=== PATIENT | male | born 1965 | race Caucasian/White ===

== ENCOUNTER 2020-08-22 13:58 | Emergency (ER) | payer OTHER ==
[2020-08-22 15:24] LABS: Absolute Lymphocytes (CBC) 2.2 K/uL (0.7-4.9); Hematocrit 46.3 % (39.6-49.0); Lymphocytes % 27.8 % (15.3-44.8); MPV 10.8 fL (7.6-11.3); RBC Red Blood Cell Count 5.23 M/uL (4.33-5.43)
[2020-08-22] MEDS ORDERED: NA CHLORIDE 0.9% 1,000 ML ONE ×2 (15:26→16:42)
[2020-08-22 15:27] LABS: Protime INR 0.88
--- NOTE | 2020-08-22 15:37 | RAD REPORT ---
EXAM DESCRIPTION: RAD - Chest Single View - 08/22/2020 3:20 pm CLINICAL HISTORY: near syncope Chest pain. COMPARISON: No comparisons FINDINGS: Portable technique limits examination quality. The lungs are grossly clear. The heart is normal in size. No displaced fractures. IMPRESSION: No acute intrathoracic process suspected.
[2020-08-22 15:52] LABS: ALT/SGPT 64 U/L (12-78); AST/SGOT 40 U/L (15-37); Albumin 3.3 g/dL (3.4-5.0); Alkaline Phosphatase 86 U/L (45-117); BUN Blood Urea Nitrogen 14 mg/dL (7-18); Bicarbonate 23 mmol/L (21-32); Bilirubin Direct < 0.1 mg/dL (0-0.2); Bilirubin Total 0.5 mg/dL (0.2-1.0); Glucose Level 373 mg/dL (74-106); NT PRO-BNP 107 pg/mL (<125); Potassium 4.4 mmol/L (3.5-5.1); Protein, Total 6.3 g/dL (6.4-8.2); Sodium Level 134 mmol/L (136-145); Troponin (Emerg Dept Use Only) < 0.02 ng/mL (0.0-0.045)
[2020-08-22 15:53] LABS: Magnesium 1.8 mg/dL (1.8-2.4)
[2020-08-22 16:17] LABS: Urine Blood NEGATIVE (NEG); Urine Glucose 3+ (NEG); Urine Protein TRACE (NEG); Urine Specific Gravity 1.015 (1.005-1.030); Urine pH 5.5 (5.0-7.0)
[2020-08-22] MEDS ORDERED: INSULIN -REGULAR HUMAN 50 UNIT/0.5 ML ML ONE (16:42)
--- NOTE | 2020-08-22 17:58 | EDPHYS ---
Physician Documentation [facility] Name: Jamie Steele Age: 54 yrs Sex: Male : 1965 Arrival Date: 08/22/2020 Time: 14:03 Bed 15 Private MD: ED Physician Robbin Sotelo HPI: 08/22 15:16 This 54 yrs old Male presents to ER via Ambulatory with complaints of High pm1 Blood Sugar. 15:16 The patient or guardian reports hyperglycemia, that was potentially precipitated by pm1 eating, lots of sugar. Was eating ice cream, cookies, and soda for 4 days in a row. 15:16 Onset: The symptoms/episode began/occurred 4 day(s) ago. Associated signs and symptoms: pm1 Pertinent positives: polyuria, near syncope, shortness of breath, Pertinent negatives: diarrhea, nausea, vomiting, chest pain. Current symptoms: In the emergency department the patient's symptoms are unchanged from the initial presentation. The patient has not experienced similar symptoms in the past. The patient has not recently seen a physician. Patient reports normally well controlled blood sugar with metformin but for four days he was celebrating his 's new job, two birthdays, and a baby shower. Eating ice cream, cookies, soda daily for four days and noticed his blood sugar readings getting high. Historical: - Allergies: 14:33 No Known Allergies; ll1 - PMHx: 14:33 Diabetes - NIDDM; Hypertension; ll1 - PSHx: 14:33 palate and uvula removed; ll1 - Immunization history:: Flu vaccine is not up to date. - Social history:: Smoking status: Patient reports the use of cigarette tobacco products, denies chronic smoking, but will smoke occasionally. ROS: 15:16 Constitutional: Negative for fever, chills, and weight loss, Neck: Negative for injury, pm1 pain, and swelling, Cardiovascular: Negative for chest pain, palpitations, and edema. 15:16 Abdomen/GI: Negative for abdominal pain, nausea, vomiting, diarrhea, and constipation, Back: Negative for injury and pain, : Negative for injury, bleeding, discharge, and swelling, MS/Extremity: Negative for injury and deformity, Skin: Negative for injury, rash, and discoloration. 15:16 Respiratory: Positive for shortness of breath, Negative for cough, wheezing. 15:16 Neuro: Positive for near syncope, Negative for headache, numbness, tingling, weakness. 15:16 Endocrine: Positive for polyuria. Exam: 15:16 Constitutional: This is a well developed, well nourished patient who is awake, alert, pm1 and in no acute distress. Head/Face: Normocephalic, atraumatic. 15:16 Back: No spinal tenderness. No costovertebral tenderness. Full range of motion. Skin: Warm, dry with normal turgor. Normal color with no rashes, no lesions, and no evidence of cellulitis. MS/ Extremity: Pulses equal, no cyanosis. Neurovascular intact. Full, normal range of motion. 15:16 Cardiovascular: Exam negative for acute changes, Rate: normal, Rhythm: regular, Pulses: no pulse deficits are appreciated. 15:16 Respiratory: Exam negative for acute changes, respiratory distress, shortness of breath. 15:16 Neuro: Exam negative for acute changes, Orientation: is normal, Mentation: is normal, Motor: is normal, moves all fours. Vital Signs: 14:33 BP 128 / 80; Pulse 81; Resp 18; Temp 98.3; Pulse Ox 96% ; Weight 124.74 kg; Pain 4/10; ll1 14:50 BP 132 / 65; Pulse 83; Resp 18; Pulse Ox 96% on R/A; vg1 16:21 BP 131 / 65; Pulse 80; Resp 18; Pulse Ox 98% on R/A; vg1 17:00 BP 143 / 81; Pulse 70; Resp 14; Pulse Ox 100% on R/A; vg1 MDM: 15:02 Patient medically screened. pm1 16:10 ED course: anion gap = 8. No DKA. pm1 17:56 Data reviewed: vital signs. Data interpreted: Pulse oximetry: on room air is 100 %. pm1 Interpretation: normal. Counseling: I had a detailed discussion with the patient and/or guardian regarding: the historical points, exam findings, and any diagnostic results supporting the discharge/admit diagnosis, lab results, radiology results, the need for outpatient follow up, to return to the emergency department if symptoms worsen or persist or if there are any questions or concerns that arise at home. 08/22 14:48 Order name: Glucose, Ancillary Testing; Complete Time: 15:03 EDMS 08/22 15:04 Order name: Basic Metabolic Panel pm1 08/22 15:04 Order name: CBC with Diff; Complete Time: 15:42 pm1 08/22 15:04 Order name: LFT's; Complete Time: 16:03 pm1 08/22 15:04 Order name: Magnesium; Complete Time: 16:03 pm1 08/22 15:04 Order name: NT PRO-BNP; Complete Time: 16:03 pm1 08/22 15:04 Order name: PT-INR; Complete Time: 15:42 pm1 08/22 15:04 Order name: Troponin (emerg Dept Use Only); Complete Time: 16:03 pm1 08/22 15:04 Order name: XRAY Chest (1 view); Complete Time: 15:42 pm1 08/22 15:04 Order name: Basic Metabolic Panel; Complete Time: 16:03 EDMS 08/22 16:03 Order name: Urine Dipstick--Ancillary (enter results) bd 08/22 16:04 Order name: Urine Dipstick-Ancillary; Complete Time: 16:39 EDMS 08/22 16:43 Order name: Glucose, Ancillary Testing; Complete Time: 16:50 EDMS 08/22 17:41 Order name: Glucose, Ancillary Testing; Complete Time: 17:56 EDMS 08/22 15:04 Order name: EKG; Complete Time: 15:05 pm1 08/22 15:04 Order name: Cardiac monitoring; Complete Time: 15:15 pm1 08/22 15:04 Order name: EKG - Nurse/Tech; Complete Time: 15:15 pm1 08/22 15:04 Order name: IV Saline Lock; Complete Time: 15:15 pm1 08/22 15:04 Order name: Labs collected and sent; Complete Time: 15:15 pm1 08/22 15:04 Order name: O2 Per Protocol; Complete Time: 15:15 pm1 08/22 15:04 Order name: O2 Sat Monitoring; Complete Time: 15:15 pm1 08/22 15:42 Order name: Urine Dipstick-Ancillary (obtain specimen); Complete Time: 15:57 pm1 Administered Medications: 15:12 Drug: NS 0.9% 1000 ml Route: IV; Rate: 1000 ml; Site: right antecubital; vg1 18:16 Follow up: IV Status: Completed infusion vg1 16:39 Drug: Insulin Regular Human 5 units {Co-Signature: bw (Nicky Wise RN).} Route: IVP; vg1 Site: right antecubital; 18:15 Follow up: Response: No adverse reaction vg1 16:39 Drug: NS 0.9% 1000 ml Route: IV; Rate: 1000 ml; Site: right antecubital; vg1 18:16 Follow up: IV Status: Completed infusion vg1 Disposition: 18:21 Co-signature as Attending Physician, Robbin Sotelo MD. rn Disposition: 08/22/20 17:57 Discharged to Home. Impression: Hyperglycemia, unspecified. - Condition is Stable. - Discharge Instructions: Hyperglycemia, Blood Glucose Monitoring, Adult, Diabetes and Exercise. - Medication Reconciliation Form, Thank You Letter, Antibiotic Education, Prescription Opioid Use form. - Follow up: Emergency Department; When: As needed; Reason: Worsening of condition. Follow up: Private Physician; When: 2 - 3 days; Reason: Recheck today's complaints, Continuance of care, Re-evaluation by your physician. - Problem is new. - Symptoms have improved. Signatures: Dispatcher [employer] EDMS Robbin Sotelo MD MD rn Marinas, Patrick, EDUCATIONAL AUDIOLOGIST EDUCATIONAL AUDIOLOGIST pm1 Annamarie Jefferson RN RN vg1 Cory Powell RN RN 1 Nicky Wise RN Corrections: (The following items were deleted from the chart) 18:16 17:57 08/22/2020 17:57 Discharged to Home. Impression: Hyperglycemia, unspecified. vg1 Condition is Stable. Forms are Medication Reconciliation Form, Thank You Letter, Antibiotic Education, Prescription Opioid Use. Follow up: Emergency Department; When: As needed; Reason: Worsening of condition. Follow up: Private Physician; When: 2 - 3 days; Reason: Recheck today's complaints, Continuance of care, Re-evaluation by your physician. Problem is new. Symptoms have improved. pm1
--- NOTE | 2020-08-22 17:58 | ER ---
Nurse's Notes [facility] Name: Jamie Steele Age: 54 yrs Sex: Male : 1965 Arrival Date: 08/22/2020 Time: 14:03 Bed 15 Private MD: Diagnosis: Hyperglycemia, unspecified Presentation: 08/22 14:33 Chief complaint: Patient states: Blood sugar has been 450-500+ for 4 days. Taking ll1 metformin as prescribed. SOB, lightheaded, dizzy, near syncope feeling. Fingerstick 409 in triage. Coronavirus screen: Client denies travel out of the [place] in the last 14 days. At this time, the client does not indicate any symptoms associated with coronavirus-19. Ebola Screen: Patient denies travel to an Ebola-affected area in the 21 days before illness onset. Initial Sepsis Screen: Does the patient meet any 2 criteria? No. Patient's initial sepsis screen is negative. Does the patient have a suspected source of infection? No. Patient's initial sepsis screen is negative. Risk Assessment: Do you want to hurt yourself or someone else? Patient reports no desire to harm self or others. Onset of symptoms was August 18, 2020. 14:33 Method Of Arrival: Ambulatory ll1 14:33 Acuity: ALIREZA 2 ll1 Historical: - Allergies: 14:33 No Known Allergies; ll1 - PMHx: 14:33 Diabetes - NIDDM; Hypertension; ll1 - PSHx: 14:33 palate and uvula removed; ll1 - Immunization history:: Flu vaccine is not up to date. - Social history:: Smoking status: Patient reports the use of cigarette tobacco products, denies chronic smoking, but will smoke occasionally. Screenin:13 Abuse screen: Denies threats or abuse. Nutritional screening: No deficits noted. vg1 Tuberculosis screening: No symptoms or risk factors identified. Fall Risk None identified. Assessment: 14:50 General: Appears in no apparent distress. comfortable, Behavior is calm, cooperative. vg1 Pain: Denies pain. Neuro: Level of Consciousness is awake, alert, obeys commands, Oriented to person, place, time, situation. Neuro: Reports dizziness, lightheaded. Cardiovascular: Patient's skin is warm and dry. Respiratory: Airway is patent Respiratory effort is even, unlabored. GI: No signs and/or symptoms were reported involving the gastrointestinal system. : No signs and/or symptoms were reported regarding the genitourinary system. EENT: No signs and/or symptoms were reported regarding the EENT system. Derm: Skin is intact, Skin is pink, warm \T\ dry. Musculoskeletal: Circulation, motion, and sensation intact. 16:20 Reassessment: Patient appears in no apparent distress at this time. No changes from vg1 previously documented assessment. Patient and/or family updated on plan of care and expected duration. Pain level reassessed. Patient is alert, oriented x 3, equal unlabored respirations, skin warm/dry/pink. 17:30 Reassessment: Patient appears in no apparent distress at this time. Patient and/or vg1 family updated on plan of care and expected duration. Pain level reassessed. Patient is alert, oriented x 3, equal unlabored respirations, skin warm/dry/pink. Patient states feeling better. Vital Signs: 14:33 BP 128 / 80; Pulse 81; Resp 18; Temp 98.3; Pulse Ox 96% ; Weight 124.74 kg; Pain 4/10; ll1 14:50 BP 132 / 65; Pulse 83; Resp 18; Pulse Ox 96% on R/A; vg1 16:21 BP 131 / 65; Pulse 80; Resp 18; Pulse Ox 98% on R/A; vg1 17:00 BP 143 / 81; Pulse 70; Resp 14; Pulse Ox 100% on R/A; vg1 ED Course: 14:03 Patient arrived in ED. as 14:33 Arm band placed on. ll1 14:35 Triage completed. ll1 14:36 Doyle Ramirez NP is PHCP. pm1 14:36 Robbin Sotelo MD is Attending Physician. pm1 14:36 Bed in low position. surveillance monitor on. Pulse ox on. NIBP on. vg1 14:41 Annamarie Jefferson RN is Primary Nurse. vg1 15:13 Inserted saline lock: 20 gauge in right antecubital area, using aseptic technique. vg1 ,using aseptic technique. by DARNELL Roque Blood collected. 15:15 Basic Metabolic Panel Sent. sv 15:20 XRAY Chest (1 view) In Process Unspecified. EDMS 18:14 No provider procedures requiring assistance completed. IV discontinued, intact, vg1 bleeding controlled, No redness/swelling at site. Pressure dressing applied. Administered Medications: 15:12 Drug: NS 0.9% 1000 ml Route: IV; Rate: 1000 ml; Site: right antecubital; vg1 18:16 Follow up: IV Status: Completed infusion vg1 16:39 Drug: Insulin Regular Human 5 units {Co-Signature: tye (Nicky Wise RN).} Route: IVP; vg1 Site: right antecubital; 18:15 Follow up: Response: No adverse reaction vg1 16:39 Drug: NS 0.9% 1000 ml Route: IV; Rate: 1000 ml; Site: right antecubital; vg1 18:16 Follow up: IV Status: Completed infusion vg1 Outcome: 17:57 Discharge ordered by MD. pm1 18:15 Discharged to home ambulatory. vg1 18:15 Condition: stable 18:15 Discharge instructions given to patient, Instructed on discharge instructions, follow up and referral plans. Demonstrated understanding of instructions, follow-up care. 18:16 Patient left the ED. vg1 Signatures: Dispatcher [employer] Karina Bhagat, RN RN Vicki Salgado Patrick, VIRGILIO FINGERNAIL SCULPTURER pm1 Annamarie Jefferson RN RN vg1 Cory Powell RN RN 1 Nicky gamble
[2020-08-22 19:42] VITALS: TEMP 98.3
[2020-08-22 19:46] VITALS: BP 143/81; O2SAT 100
--- NOTE | 2020-08-24 07:22 | EKG ---
Test Date: 2020-08-22 Test Time: 14:28:38 Telegraphic Typewriter Repairer: SANCHEZ MEASUREMENT RESULTS: Intervals: Rate: 77 IL: 142 QRSD: 94 QT: 384 QTc: 434 [place]: P: 47 IL: 142 QRS: -7 T: 26 INTERPRETIVE STATEMENTS: Normal sinus rhythm Cannot rule out Anterior infarct, age undetermined Abnormal ECG Compared to ECG 08/22/2020 14:21:07 Right bundle-branch block no longer present Myocardial infarct finding still present Electronically Signed On 08-24-20 07:19:04 CDT by Raphael Lorenzana
== END 2020-08-22 18:16 | disposition home or self-care (01) ==
LOC: ER 13:58
DX: E11.65 Type 2 diabetes mellitus with hyperglycemia (principal); I10 Essential (primary) hypertension; F17.210 Nicotine dependence, cigarettes, uncomplicated
CPT/HCPCS: 93005; 85025; 80048; 36415; 83735; 85610; 82947 ×3; 80076; 81003; 84484; 83880; 71045; J7030 ×2; 96361; 96374; 99284